=== PATIENT | female | born 1975 | race Caucasian/White ===

== ENCOUNTER 2022-02-04 11:54 | Emergency (ER) | payer SELFPAY ==
[2022-02-04 12:16] VITALS: BP 109/64
--- NOTE | 2022-02-04 12:49 | XRAY Report ---
PROCEDURE: Foot 3 View LT INDICATIONS: Trauma TECHNIQUE: 3 views of the foot were acquired. COMPARISON: None FINDINGS: Bones: No fractures or dislocations. No suspicious bony lesions. Soft tissues: No tibiotalar joint effusion. Achilles tendon appears normal. IMPRESSION: No evidence acute bony abnormality of the left foot. If clinical suspicion and/or symptoms persist, further assessment with repeat plain films or advanced imaging (e.g., CT, MRI, or bone scan) may be helpful for further assessment. Reviewed by: Andrae Junior MD on 02/04/2022 12:48 PM PST Approved by: Andrae Junior MD on 02/04/2022 12:48 PM PST Station ID: [id number]
--- NOTE | 2022-02-04 13:08 | ED Physician Documentation ---
PD HPI LOWER EXT INJURY - Stated complaint Stated Complaint: LT FOOT INJ - Chief complaint Chief Complaint: Trauma Ext - History obtained from History obtained from: Patient - History of Present Illness PD HPI LOW EXT INJURY LOCATION: Foot Where injury occurred: Home Timing - duration: Weeks (2) Pain level max: 5 Pain level now: 2 Improved by: Rest Worsened by: Moving, Palpating Associated symptoms: No: Weakness, Numbness, Tingling, Swelling, Discolored - Additional information Additional information: Patient is a 46-year-old female who presents to the emergency department with left foot pain x2 weeks. Worse with movement and walking, better with rest. She states it started after she stepped wrong off of a stool. No numbness or tingling. No swelling. Review of Systems Constitutional: denies: Fever Skin: denies: Rash Neurologic: denies: Headache, Head injury PD PAST MEDICAL HISTORY - Past Medical History Past Medical History: No - Past Surgical History Past Surgical History: No - Present Medications Home Medications: Ambulatory Orders Medication Instructions Recorded Confirmed No Known Home Medications 02/04/22 02/04/22 - Allergies Allergies/Adverse Reactions: Allergies Allergy/AdvReac Type Severity Reaction Status Date / Time No Known Drug Allergies Allergy Verified 02/04/22 12:13 - Living Situation Living Situation: reports: With family Living Arrangement: reports: At home - Social History Does the pt have substance abuse?: No - Family History Family history: reports: Non contributory PD ED PE NORMAL - Vitals Vital signs reviewed: Yes - General General: Alert and oriented X 3, No acute distress - HEENT HEENT: Moist mucous membranes - Neck Neck: Supple, no meningeal sign - Derm Derm: Warm and dry - Extremities Extremities: Other (L foot - Mild tenderness near the base of the fifth metatarsal. No deformity. No swelling. No ecchymosis. Has pain with Inversion of the foot near the base of the fifth metatarsal. Otherwise normal foot and ankle exam) - Neuro Neuro: Alert and oriented X 3 Results - Vitals Vitals: Vital Signs - 24 hr 02/04/22 12:12 Temperature 36.9 C Heart Rate 85 Respiratory 16 Rate Blood Pressure 109/64 O2 Saturation 100 Oxygen O2 Source Room air - Rads (name of study) L foot xray Radiology: Final report received, See rad report PD Medical Decision Making - ED course Complexity details: reviewed results, re-evaluated patient, considered differential, d/w patient ED course: 46-year-old female with a left ankle sprain. No acute findings on x-ray. Given a postop shoe for comfort. Also given an ankle brace. Ambulating well. We will continue Motrin and Tylenol as needed for pain. No evidence of fracture at the base of the fifth metatarsal. Patient counseled regarding signs and symptoms for which I believe and urgent re-evaluation would be necessary. Patient with good understanding of and agreement to plan and is comfortable going home at this time This document was made in part using voice recognition software. While efforts are made to proofread this document, sound alike and grammatical errors may occur. Departure - Departure Disposition: 01 Home, Self Care Clinical Impression: Sprain of left foot Qualifiers: Encounter type: initial encounter Qualified Code(s): S93.602A - Unspecified sprain of left foot, initial encounter Condition: Good Instructions: ED Sprain Foot Follow-Up: Your,doctor in 1 week [Other] Comments: Your x-ray does not show any acute abnormalities today. You can use the postoperative shoe and ankle brace as needed to help stabilize the area. This should improve over the next few weeks. Occasionally these may need physical therapy if you are not healing as exspected. Please return if you worsen. Discharge Date/Time: 02/04/22 13:36
== END 2022-02-04 13:36 | disposition home or self-care (01) ==
LOC: ED 11:54
DX: S93.602A Unspecified sprain of left foot, initial encounter (principal); W17.89XA Other fall from one level to another, initial encounter; Y92.009 Unspecified place in unspecified non-institutional (private) residence as the place of occurrence of the external cause
CPT/HCPCS: 99282; 99283

== ENCOUNTER 2022-03-17 12:13 | Emergency (ER) | payer SELFPAY ==
[2022-03-17 12:44] LABS: BASOPHILS % (AUTO) 0.7 %; EOSINOPHILS # (AUTO) 0.1 10^3/uL (0.0-0.7); EOSINOPHILS % (AUTO) 1.2 %; HCT - HEMATOCRIT 38.1 % (37.0-47.0); HGB - HEMOGLOBIN 12.6 g/dL (12.0-16.0); LYMPHOCYTES # (AUTO) 1.4 10^3/uL (1.5-3.5); LYMPHOCYTES % (AUTO) 23.4 %; MEAN CORPUSCULAR HEMOGLOBIN 29.5 pg (27.0-31.0); MEAN CORPUSCULAR HGB CONC 33.1 g/dL (32.0-36.0); MEAN CORPUSCULAR VOLUME 89.2 fL (81.0-99.0); MEAN PLATELET VOLUME 10.4 fL (7.9-10.8); MONOCYTES # (AUTO) 0.4 10^3/uL (0.0-1.0); MONOCYTES % (AUTO) 6.6 %; NEUTROPHILS % (AUTO) 67.9 %; PLT - PLATELET COUNT 239 10^3/uL (130-450); RED BLOOD COUNT 4.27 10^6/uL (4.20-5.40); RED CELL DISTRIBUTION WIDTH 13.3 % (12.0-15.0); WHITE BLOOD COUNT 5.9 x10^3/uL (4.8-10.8)
[2022-03-17 13:02] LABS: ALBUMIN 4.1 g/dL (3.2-5.5); ALBUMIN/GLOBULIN RATIO 1.4 (1.0-2.2); BILIRUBIN,TOTAL 0.9 mg/dL (0.2-1.0); CALCIUM 9.1 mg/dL (8.5-10.3); CREATININE 0.6 mg/dL (0.4-1.0); POTASSIUM 4.1 mmol/L (3.5-5.0)
--- NOTE | 2022-03-17 13:02 | ED Physician Documentation ---
History of Present Illness - Stated complaint Stated Complaint: FEMALE - Chief complaint Chief Complaint: Abd Pain - Additonal information Additional information: 46-year-old female presents to the emergency department for evaluation of va ginal bleeding and feeling lightheaded. She states that she began having vaginal bleeding about 2 days ago. Heavier than her typical flow. She has begun to feel nauseated and lightheaded. She states that her last cycle just over a month ago was irregular and shorter than it typically would be. However she is concerned because 6 years ago she had a mass in her uterus that was bleeding and she required surgery for this. She is unsure what kind of mass it was. Patient takes no prescribed medications or hormones. She does vape daily. She is taken Tylenol without relief of symptoms. The lightheaded no syncope. No dyspnea or chest pain. pt is reliable historian Review of Systems Constitutional: denies: Fever, Chills Cardiac: reports: Reviewed and negative Respiratory: reports: Reviewed and negative GI: reports: Abdominal Pain : reports: Vaginal bleeding, Irregular menses Skin: reports: Reviewed and negative Musculoskeletal: reports: Reviewed and negative PD PAST MEDICAL HISTORY - Past Surgical History Past Surgical History: No - Present Medications Home Medications: Ambulatory Orders Medication Instructions Recorded Confirmed No Known Home Medications 02/04/22 03/17/22 - Allergies Allergies/Adverse Reactions: Allergies Allergy/AdvReac Type Severity Reaction Status Date / Time No Known Drug Allergies Allergy Verified 03/17/22 12:26 - Social History Does the pt have substance abuse?: No PD ED PE NORMAL - General General: Alert and oriented X 3, No acute distress - HEENT HEENT: Atraumatic, Moist mucous membranes - Neck Neck: Supple, no meningeal sign, No adenopathy - Cardiac Cardiac: RRR, No murmur - Respiratory Respiratory: No respiratory distress, Clear bilaterally - Abdomen Abdomen: Normal bowel sounds, Soft. No: Non tender (mild lowr pelvic tenderenss withotu guarding or rebound) - Derm Derm: Normal color, Warm and dry - Neuro Neuro: Alert and oriented X 3 Eye Opening: Spontaneous Motor: Obeys Commands Verbal: Oriented GCS Score: 15 Results - Vitals Vitals: Vital Signs - 24 hr 03/17/22 12:23 Temperature 36.6 C Heart Rate 92 Respiratory 14 Rate Blood Pressure 116/74 O2 Saturation 99 Oxygen O2 Source Room air - Labs Labs: Laboratory Tests 03/17/22 03/17/22 03/17/22 12:35 12:35 12:35 WBC RBC Hgb Hct MCV MCH MCHC RDW Plt Count MPV Neut # (Auto) Lymph # (Auto) Kerr # (Auto) Eos # (Auto) Baso # (Auto) Absolute Nucleated RBC Nucleated RBC % Sodium 136 Potassium 4.1 Chloride 99 L Carbon Dioxide 28 Anion Gap 9.0 BUN 10 Creatinine 0.6 Estimated GFR (MDRD) 108 Glucose 107 H Calcium 9.1 Total Bilirubin 0.9 AST 15 ALT 12 Alkaline Phosphatase 40 L Total Protein 7.0 Albumin 4.1 Globulin 2.9 Albumin/Globulin Ratio 1.4 Lipase 39 HCG, Quant Blood Type B POSITIVE Blood Type Recheck B POSITIVE 03/17/22 03/17/22 12:35 12:40 WBC 5.9 RBC 4.27 Hgb 12.6 Hct 38.1 MCV 89.2 MCH 29.5 MCHC 33.1 RDW 13.3 Plt Count 239 MPV 10.4 Neut # (Auto) 4.0 Lymph # (Auto) 1.4 L Kerr # (Auto) 0.4 Eos # (Auto) 0.1 Baso # (Auto) 0.0 Absolute Nucleated RBC 0.00 Nucleated RBC % 0.0 Sodium Potassium Chloride Carbon Dioxide Anion Gap BUN Creatinine Estimated GFR (MDRD) Glucose Calcium Total Bilirubin AST ALT Alkaline Phosphatase Total Protein Albumin Globulin Albumin/Globulin Ratio Lipase HCG, Quant < 0.60 Blood Type Blood Type Recheck - Rads (name of study) pelvic US Radiology: See rad report, Other (Per polysomnographic technologist: Right ovarian cyst less than 25 mm. No torsion. Normal endometrial thickness. No free fluid. No discrete fibroids seen) PD Medical Decision Making - ED course Complexity details: reviewed results, re-evaluated patient, d/w patient, d/w family ED course: Well-appearing 46-year-old female presents emergency department for evaluation of heavy vaginal bleeding and lower pelvic cramping. She reports that her menstrual cycle last month was short and this month seems heavier and more uncomfortable. She reported feeling faint and lightheaded. She also stated that 6 years ago there was a mass removed in her uterus during surgery due to heavy bleeding. I suspect that this was a fibroid though I cannot confirm that. Here in the emergency department she has unremarkable vital signs without fever, tachycardia or hypotension. We did obtain a CBC and electrolytes and per my interpretation no worrisome findings were seen. Given the history of abnormal uterine bleeding secondary to a massive pelvic ultrasound was completed. Today there is an incidental finding made of a right ovarian cyst but no findings to suggest free fluid in the pelvis, thickened endometrium or a fibroid. I discussed with the patient that I felt her symptoms likely indicated she was developing perimenopausal symptoms. We discussed routine management with [id number] ibuprofen and Tylenol. She did receive Toradol 30 mg IM here in the ER with good results. I have encouraged her to follow-up with her PCP and/or truck terminal manager. Worrisome and emergent return precautions for severe vaginal bleeding were discussed. Departure - Departure Disposition: 01 Home, Self Care Clinical Impression: Right ovarian cyst, Irregular menstrual cycle Condition: Stable Record reviewed to determine appropriate education?: Yes Comments: Fabricio came to the emergency department today because you have begun to have some irregular menstrual cycles. Your cycle last month was short and today your cycle is heavier and more uncomfortable than you typically know it to be. You do have a history of a mass within your uterus about 6 years ago that required surgery. I suspect that this was a bleeding fibroid. Today in the emergency department we did obtain a CBC and electrolytes that were essentially normal. We also did a pelvic ultrasound. There is an incidental finding made of a right ovarian cyst that is about 2 cm. These are typically incidental in women and most of them will be reabsorbed. There were no findings to suggest mass or fibroids within your uterus. Your endometrial lining was not excessively thick. I suspect the majority of your symptoms may be perimenopausal. This can be seen in older women who are approaching 50 who began to have irregular cycles sometimes shorter sometimes heavier and sometimes more painful. I encourage you to discuss this ED visit with your primary care doctor. You may benefit from follow-up with a truck terminal manager. In order to manage the cramping and discomfort I recommend that you take 500 mg of Tylenol 2-3 times a day or alternate with 600 mg of ibuprofen with food also 2-3 times a day. Reasons to return to the emergency department would be the severe vaginal bleeding such as a saturated pad or tampon every hour for 6 or more hours, severe chest pain, shortness of air or any fainting episodes
[2022-03-17] MEDS ORDERED: KETOROLAC 30 MG/ML VIAL IM STA (13:17)
--- NOTE | 2022-03-17 15:11 | Ultrasound Report ---
PROCEDURE: Pelvic w/Transvag+Doppler Comp INDICATIONS: Heavy vaginal bleeding TECHNIQUE: Real-time scanning was performed of the pelvic organs, with image documentation. Additional endovagi nal scanning was necessary due to incomplete visualization of the adnexal and endometrial structures by transabdominal scanning. Doppler interrogation was performed of the ovaries bilaterally. COMPARISON: None. FINDINGS: Uterus: Uterus is normal in size at 10.3 x 4.7 x 6.3 cm. The endometrium measures 6 mm in combined thickness. Ovaries: Right ovary measures 2.8 x 2.3 x 2.2 cm, volume 8 cc. Left ovary measures 3.0 x 1.8 x 2.2 c m, 6 cc. A 2.4 cm follicle is present in the right ovary. Arterial and venous blood flow identified w ithin both ovaries on Doppler imaging. Other: No free pelvic fluid. IMPRESSION: 1. Endometrium within normal limits for thickness without a suspicious focal lesion identified sonogr aphically. 2. Unremarkable sonographic appearance of the ovaries. Reviewed by: Raghavendra Sherman MD on 03/17/2022 3:10 PM PST Approved by: Raghavendra Sherman MD on 03/17/2022 3:10 PM PST Station ID: [id number]
[2022-03-17 15:21] VITALS: BP 100/76
== END 2022-03-17 15:16 | disposition home or self-care (01) ==
LOC: ED 12:13
DX: N83.201 Unspecified ovarian cyst, right side (principal); N92.6 Irregular menstruation, unspecified; F17.290 Nicotine dependence, other tobacco product, uncomplicated
CPT/HCPCS: 36415; 80053; 83690; 84702; 85025; 86900; 86901; 93975; 96372; 99284